=== PATIENT | female | born 1960 | race Caucasian/White ===

== ENCOUNTER 2022-08-06 09:42 | Day surgery (SDC) | payer OTHER ==
[~2022-08-06] VITALS: Ht 162.6 cm; Wt 103.4 kg
[2022-08-06] MEDS ORDERED: diphenhydrAMINE 50 MG/ML VIAL ONE (10:37)
[2022-08-06] MEDS ORDERED: fentaNYL citrate 0.05 MG/ML VIAL ONE (10:37)
[2022-08-06] MEDS ORDERED: LIDOCAINE 2% 100 MG/5 ML UJET TP ONE (10:38)
[2022-08-06] MEDS ORDERED: MIDAZOLAM 2 MG/2 ML VIAL ONE (10:38)
[2022-08-06] MEDS ORDERED: MIDAZOLAM 2 MG/2 ML VIAL IVP ONE (13:10)
[2022-08-06] MEDS ORDERED: fentaNYL citrate 0.05 MG/ML VIAL IVP ONE (13:10)
[2022-08-06] MEDS ORDERED: SIMETHICONE 40 MG/0.6 ML ONE (14:21)
== END 2022-08-06 11:58 | disposition home or self-care (01) ==
LOC: MDS 09:42 → MMU 09:42 → MDS 11:58
PROVIDERS: ATTEND Internal Medicine Gastroenterology
DX: Z12.11 Encounter for screening for malignant neoplasm of colon (principal); K63.5 Polyp of colon; K64.8 Other hemorrhoids; I10 Essential (primary) hypertension; Z20.822 Contact with and (suspected) exposure to COVID-19; Z79.01 Long term (current) use of anticoagulants; Z79.1 Long term (current) use of non-steroidal anti-inflammatories (NSAID); Z79.899 Other long term (current) drug therapy; Z98.890 Other specified postprocedural states
CPT/HCPCS: 45385; 87426; 88305; J2250; J3010; J1200